=== PATIENT | female | born 1980 | race Caucasian/White ===

== ENCOUNTER 2019-08-02 15:55 | Emergency (ER) | payer MEDICAID, OTHER ==
[~2019-08-02] VITALS: Ht 162.6 cm; Wt 71.0 kg
[2019-08-02 17:26] VITALS: BP 158/72
== END 2019-08-02 21:44 | disposition left against medical advice (07) ==
LOC: ER 18:22
DX: R05 Cough (principal); Z53.21 Procedure and treatment not carried out due to patient leaving prior to being seen by health care provider
CPT/HCPCS: C1893

== ENCOUNTER 2025-07-18 10:56 | Emergency (ER) | payer MEDICAID ==
[~2025-07-18] VITALS: Ht 167.6 cm; Wt 75.0 kg
[2025-07-18 11:06] VITALS: O2SAT 96
[2025-07-18 11:29] LABS: BASOPHILS % 1.1 % (0.0-2.0); EOSINOPHILS % 0.8 % (0.0-5.0); HEMATOCRIT. 40.1 % (36.0-48.0); HEMOGLOBIN. 13.3 g/dL (12.0-16.0); LYMPHOCYTES % 13.8 % (20.0-50.0); MEAN PLATELET VOLUME 7.3 fl (7.4-10.4); MONOCYTES % 5.5 % (2.0-8.0); NEUTROPHILS % 78.8 % (40.0-76.0); PLATELET 381 x1000/uL (130-400); RED BLOOD CELL COUNT 4.45 mill/uL (4.2-5.4); RED CELL DISTRIBUTION WIDTH 13.5 % (11.6-14.6)
[2025-07-18 11:54] LABS: CREATININE 0.9 mg/dL (0.6-1.0); TROPONIN I HIGH SENSITIVITY 7 ng/L (3.0-34); UREA NITROGEN BLOOD 17 mg/dL (9-23)
[2025-07-18 13:50] LABS: CLARITY URINE CLOUDY (CLEAR); COLOR URINE YELLOW (YELLOW); GLUCOSE URINE NEGATIVE (NEGATIVE); KETONES URINE TRACE (NEGATIVE); LEUKOCYTE ESTERASE URINE NEGATIVE (NEGATIVE); NITRITE URINE NEGATIVE (NEGATIVE); OCCULT BLOOD URINE NEGATIVE (NEGATIVE); PH URINE 5.0 (4.5-8.0); PROTEIN URINE NEGATIVE (NEGATIVE); SPECIFIC GRAVITY URINE 1.028 (1.005-1.030); UROBILINOGEN URINE 0.2 E.U./dL (0.2-1.0)
[2025-07-18] MEDS: SODIUM CHLORIDE 0.9% (SEPSIS BOLUS) IV ONE (14:14)
[2025-07-18] MEDS: PIPERACILLIN/TAZO 3.375G/50ML 50 ML IV ONE (14:14)
[2025-07-18 14:15] LABS: SQUAMOUS EPITHELIAL CELL URINE 2+ /lpf (RARE/1+)
[2025-07-18 14:16] LABS: BACTERIA URINE TRACE; MUCUS URINE TRACE /lpf (< = 2+); WBC URINE 0-2 /hpf (0-2)
[2025-07-18 14:17] LABS: RBC URINE NONE SEEN /hpf (0-2)
[2025-07-18 15:03] LABS: PROTEIN TOTAL 6.9 g/dL (6.0-8.3)
[2025-07-18 15:05] LABS: ASPARTATE AMINOTRANSFERASE 124 IU/L (<34); BILIRUBIN DIRECT 0.2 mg/dL (<=3.0); BILIRUBIN TOTAL 0.7 mg/dL (0.1-1.0)
[2025-07-18] MEDS ORDERED: ACETAMINOPHEN 325MG TABLET PO PRN (15:30)
[2025-07-18] MEDS ORDERED: MAGNESIUM/ALUMINUM HYDROXIDE/SIMETHICONE 30ML UDC PO PRN (15:30)
[2025-07-18] MEDS ORDERED: CLONIDINE 0.1MG TABLET PO PRN (15:30)
[2025-07-18] MEDS ORDERED: MORPHINE SULFATE 2 MG/ML INJ (NOT FOR IM USE) IV PRN (15:30)
[2025-07-18] MEDS ORDERED: DEXTROSE 50% WATER 50ML SYRINGE IV PRN (15:30)
[2025-07-18] MEDS ORDERED: ONDANSETRON HCL 4MG/2ML INJ IV PRN (15:30)
[2025-07-18] MEDS: VANCOMYCIN 1G PREMIX 200 ML IV ONE (15:44)
[2025-07-18] MEDS ORDERED: HYDROCODONE/ACETAMINOPHEN 5/325MG TABLET PO PRN (15:57)
[2025-07-18 16:03] LABS: INR 0.9
[2025-07-18] MEDS: SODIUM CHLORIDE 0.9% 1,000 ML IV SCH (16:50)
[2025-07-18] MEDS: BLOOD SUGAR DIAGNOSTIC STRIP TEST SCH (17:53)
[2025-07-18] MEDS: INSULIN LISPRO 100 UNITS/ML SUBCUT SCH (17:54)
[2025-07-18 18:53] VITALS: BP 167/113; PULSE 96; RESP 20; TEMP 36.8; O2SAT 100
[2025-07-18] MEDS ORDERED: ZOLPIDEM TARTRATE 5MG TABLET PO PRN (20:00)
[2025-07-18] MEDS ORDERED: VANCOMYCIN 1G PREMIX 200 ML IV SCH (21:00)
[2025-07-18] MEDS ORDERED: INSULIN GLARGINE 100 UNITS/ML SUBCUT SCH (22:00)
[2025-07-18] MEDS ORDERED: PIPERACILLIN/TAZO 3.375G/50ML 50 ML IV SCH (22:00)
[2025-07-19 08:13] LABS: *AMPHETAMINES SCREEN URINE PRESUMPTIVE POSITIVE (NEGATIVE); *BARBITURATES SCREEN URINE NEGATIVE (NEGATIVE); *BENZODIAZEPINES SCREEN URINE NEGATIVE (NEGATIVE); *COCAINE SCREEN URINE NEGATIVE (NEGATIVE); METHADONE URINE SCREEN NEGATIVE (NEGATIVE); OPIATES URINE SCREEN NEGATIVE (NEGATIVE)
[2025-07-19 08:14] LABS: CANNABINOID URINE SCREEN NEGATIVE (NEGATIVE); ECSTASY MDMA SCREEN URINE NEGATIVE (NEGATIVE); PHENCYCLIDINE URINE SCREEN PRESUMTIVE POSITIVE (NEGATIVE)
[2025-07-19] MEDS ORDERED: ENOXAPARIN 40MG/0.4ML SYR SUBCUT SCH (09:00)
[2025-07-19] MEDS ORDERED: PANTOPRAZOLE SODIUM 40 MG/VIAL IV SCH (09:00)
== END 2025-07-18 19:13 | disposition left against medical advice (07) ==
LOC: ER 10:56 → EDBEDREQ 15:44 → EDBEDREQSVC 15:44 → EDBEDREQTM 15:44 → CANBEDREQ 19:10 → ER 19:13
DX: L03.115 Cellulitis of right lower limb (principal); R07.89 Other chest pain; E11.9 Type 2 diabetes mellitus without complications; I10 Essential (primary) hypertension; Z55.6 Problems related to health literacy; Z75.3 Unavailability and inaccessibility of health-care facilities; Z90.49 Acquired absence of other specified parts of digestive tract; Z79.899 Other long term (current) drug therapy
CPT/HCPCS: 99291; 93970; 96365; 71045; 96366; 80076; 80305; 80048; 82962; 83880; 83605; 83690; 85025; 85379; 85610; 87040; 87086; 84484; 36415; 84145; 73630; 93005; 96368; 81003; J2543; J3373; J7030